=== PATIENT | female | born 1960 | race Caucasian/White ===

== ENCOUNTER → 2020-03-25 | Outpatient (CLI) | payer OTHER ==
[~2020-03-25] MED LIST: ASPIR 8181 MG PO; CLOBETASOL PRO TP; CYMBALTA60 MG PO; ELIQUIS5 MG PO; FLONASE 0.05% N16 GM; GABAPENTIN300 MG PO; GLUCOPHAGE 500500 MG PO; HYDROCHLOROTH12.5 M1 PO; IMDUR ER TAB 3030 MG PO; KETOCONAZOLE120 ML TP; LASIX20 MG PO; LOPRESSOR 50 MG50 MG PO; NITROSTAT 0.40.4 MG SL; SIMVASTATIN10 MG PO; SINGULAIR10 MG PO; ULTRAM50 MG PO; vitamin d PO
== END ==
LOC: KOH-I 14:58
DX: M25.552 Pain in left hip (principal); R10.2 Pelvic and perineal pain; M79.652 Pain in left thigh; M19.09 Primary osteoarthritis, other specified site
CPT/HCPCS: 72170; 73502; 73552

== ENCOUNTER → 2020-06-09 | Day surgery (SDC) | payer OTHER | END | disposition home or self-care (01) | LOC: OR 06:04 | DX: G56.03 Carpal tunnel syndrome, bilateral upper limbs (principal); I11.0 Hypertensive heart disease with heart failure; I50.9 Heart failure, unspecified; E11.40 Type 2 diabetes mellitus with diabetic neuropathy, unspecified; M79.7 Fibromyalgia; I25.10 Atherosclerotic heart disease of native coronary artery without angina pectoris; E78.5 Hyperlipidemia, unspecified; I48.91 Unspecified atrial fibrillation; F32.9 Major depressive disorder, single episode, unspecified; I25.2 Old myocardial infarction; F17.290 Nicotine dependence, other tobacco product, uncomplicated; E66.01 Morbid (severe) obesity due to excess calories; Z68.44 Body mass index [BMI] 60.0-69.9, adult; Z86.73 Personal history of transient ischemic attack (TIA), and cerebral infarction without residual deficits; Z88.5 Allergy status to narcotic agent; Z91.012 Allergy to eggs; Z88.8 Allergy status to other drugs, medicaments and biological substances; Z79.84 Long term (current) use of oral hypoglycemic drugs; Z79.01 Long term (current) use of anticoagulants; Z79.82 Long term (current) use of aspirin; Z79.899 Other long term (current) drug therapy | CPT/HCPCS: J0690; J1100; J2001; J2250; J2405; J2704; J3010; J7120 ==

== ENCOUNTER → 2020-12-12 | Outpatient (CLI) | payer OTHER ==
[~2020-12-12] MED LIST changes: +CLOBETASOL 0.0560 GM TOP; +DULOXETINE HCL60 MG PO; +FLONASE ALLER15.8 ML; +HYDROCHLOROTH12.5 MG PO; +HYDROXYZINE HCL25 MG PO; +KETOCONAZOLE120 ML TOP; +LIPOFLAVONOID PO; +METFORMIN HCL500 M2 PO; +METOPROLOL TART50 MG PO; +TRAMADOL HCL50 MG PO
[2020-12-12 12:29] LABS: HEMOGLOBIN 14.8 gm/dl (12.3-15.3); WHITE BLOOD COUNT 9.5 K/UL (4.5-11.0)
[2020-12-12 12:44] LABS: BUN/CREATININE RATIO 16 (0-10)
== END ==
LOC: OPSV2 10:30
PROVIDERS: Obstetrics & Gynecology
DX: Z01.818 Encounter for other preprocedural examination (principal); N95.0 Postmenopausal bleeding; R94.31 Abnormal electrocardiogram [ECG] [EKG]
CPT/HCPCS: 36415; 80053; 81001; 85025; 93005

== ENCOUNTER → 2020-12-18 | Day surgery (SDC) | payer OTHER | END | disposition home or self-care (01) | LOC: OR 06:01 | DX: C54.1 Malignant neoplasm of endometrium (principal); N95.0 Postmenopausal bleeding; Z79.01 Long term (current) use of anticoagulants; Z79.82 Long term (current) use of aspirin; Z88.5 Allergy status to narcotic agent; E11.9 Type 2 diabetes mellitus without complications; Z79.84 Long term (current) use of oral hypoglycemic drugs; R00.2 Palpitations; Z20.822 Contact with and (suspected) exposure to COVID-19; R94.31 Abnormal electrocardiogram [ECG] [EKG]; I25.10 Atherosclerotic heart disease of native coronary artery without angina pectoris | CPT/HCPCS: 82962; J1100; J2001; J2250; J2405; J2704; J2795; J3010; J7120 ==

== ENCOUNTER → 2021-11-03 | Outpatient (CLI) | payer MEDICARE | LOC: RAD 11:18 | DX: M17.0 Bilateral primary osteoarthritis of knee (principal); E55.9 Vitamin D deficiency, unspecified; M79.7 Fibromyalgia; Z79.891 Long term (current) use of opiate analgesic; M65.312 Trigger thumb, left thumb | CPT/HCPCS: 73562 ==

== ENCOUNTER → 2021-11-23 | Outpatient (CLI) | payer MEDICARE | LOC: KOH-I 11:54 | DX: E66.9 Obesity, unspecified (principal) | CPT/HCPCS: 71046 ==